=== PATIENT | female | born 1960 | race Two or more races ===

== ENCOUNTER 2023-08-27 17:34 | Emergency (ER) | payer OTHER ==
[~2023-08-27] VITALS: Ht 160 cm; Wt 72.6 kg
[2023-08-27] MEDS ORDERED: VALACYCLOVIR1000 MG PO (18:03)
[2023-08-27] MEDS ORDERED: NP THYROID15 MG PO (18:03)
[2023-08-27] MEDS ORDERED: GABAPENTIN100 M2 PO (21:13)
[2023-08-27] MEDS ORDERED: MEDROLPACK PO (21:13)
== END 2023-08-27 21:17 | disposition home or self-care (01) ==
LOC: ER 17:34
DX: B02.9 Zoster without complications (principal)